=== PATIENT | female | born 1975 | race Caucasian/White ===

== ENCOUNTER 2021-09-06 15:02 | Inpatient (IN) | payer OTHER ==
[~2021-09-06] VITALS: Ht 149.9 cm; Wt 82.6 kg
[~2021-09-06 15:02] MED LIST: SYNTHROID50 MCG PO
[2021-09-13] MEDS ORDERED: NEURONTIN600 MG PO (06:40)
[2021-09-13] MEDS ORDERED: IBUPROFEN800 MG PO (06:41)
[2021-09-13] MEDS ORDERED: SIMETHICONE125 M1 PO (06:41)
== END 2021-09-13 08:11 | disposition home or self-care (01) | DRG 743 ==
LOC: OB/GYN 09-11 06:00 → O/R 09-11 06:00 → SURH 09-11 07:00 → OB/GYN 09-11 11:06
PROVIDERS: ADMIT Obstetrics & Gynecology; ATTEND Obstetrics & Gynecology
PROC: 0UT70ZZ Resection of Bilateral Fallopian Tubes, Open Approach (ICD-10-PCS; 2021-09-11)
PROC: 0UT20ZZ Resection of Bilateral Ovaries, Open Approach (ICD-10-PCS; 2021-09-11)
PROC: 0UT90ZZ Resection of Uterus, Open Approach (ICD-10-PCS; principal; 2021-09-11 07:00)
DX: D25.1 Intramural leiomyoma of uterus (principal); N80.0 Endometriosis of uterus; N72 Inflammatory disease of cervix uteri; N80.2 Endometriosis of fallopian tube; N83.291 Other ovarian cyst, right side; Z20.822 Contact with and (suspected) exposure to COVID-19; N83.02 Follicular cyst of left ovary; N83.11 Corpus luteum cyst of right ovary